=== PATIENT | male | born 1990 ===

== ENCOUNTER 2018-03-31 21:27 | Emergency (ER) | payer SELFPAY ==
--- NOTE | 2018-03-31 21:40 | UC ---
[facility] Dental HPI - HPI Summary HPI Summary: pain and swelling in right lower jaw has been worsening over the past 3 days - History of Current Complaint Chief Complaint: UCDentalProblem Stated Complaint: TOOTH ACHE Time Seen by Provider: 03/31/18 21:36 Hx Obtained From: Patient Onset/Duration: Sudden Onset, Lasting Days - 3 Severity: Moderate Aggravating Factor(s): Heat, Cold, Chewing Alleviating Factor(s): Nothing Related History: Previous Dental Care on Same Tooth, Swelling - Allergies/Home Medications Allergies/Adverse Reactions: Allergies Allergy/AdvReac Type Severity Reaction Status Date / Time No Known Allergies Allergy Verified 03/31/18 21:43 Home Medications: Home Medications Fenofibrate(NF) [Tricor(NF)] 160 mg PO DAILY 03/31/18 [History Confirmed ] PMH/Surg Hx/FS Hx/Imm Hx Previously Healthy: Yes - Surgical History Surgical History: Yes Surgery Procedure, Year, and Place: WISDOM TEETH - Family History Known Family History: Positive: Hypertension - Social History Occupation: Employed Full-time Lives: With Family Alcohol Use: None Substance Use Type: None Smoking Status (MU): Never Smoked Tobacco - Immunization History Most Recent Tetanus Shot: THINKS WITHIN 5 YEARS Review of Systems Constitutional: Negative Skin: Negative Eyes: Negative ENT: Dental Pain - second right lower molar Respiratory: Negative Cardiovascular: Negative Gastrointestinal: Negative Genitourinary: Negative Motor: Negative Neurovascular: Negative Musculoskeletal: Negative Neurological: Negative Psychological: Negative Is Patient Immunocompromised?: No All Other Systems Reviewed And Are Negative: Yes Physical Exam - Summary Physical Exam Summary: i-stop [id number] no rx reported Triage Information Reviewed: Yes Appearance: Well-Appearing, No Pain Distress, Well-Nourished Vital Signs Reviewed: Yes Eye Exam: Normal Eyes: Positive: Conjunctiva Clear ENT Exam: Normal ENT: Positive: Normal ENT inspection, Hearing grossly normal, Pharynx normal, Dental tenderness, Uvula midline. Negative: Nasal congestion, Tonsillar exudate , Trismus, Hoarse voice, Sinus tenderness Dental Exam: Normal Dental: Positive: Abscess @ - right lower jaw. Negative: Percussion Tenderness @, Gross Decay/Caries @, Dental Fracture @ Neck exam: Normal Neck: Positive: Supple, Nontender Respiratory Exam: Normal Respiratory: Positive: Chest non-tender, No respiratory distress, No accessory muscle use Cardiovascular Exam: Normal Cardiovascular: Positive: RRR, Pulses Normal, Brisk Capillary Refill Musculoskeletal Exam: Normal Musculoskeletal: Positive: Strength Intact, ROM Intact, No Edema Neurological Exam: Normal Neurological: Positive: Alert, Muscle Tone Normal Psychological Exam: Normal Skin Exam: Normal Dental Complaint Course/Dx - Course Course Of Treatment: pain med, amoxicillin, dental referal and pcp referal to follow blood pressure - Differential Dx/Diagnosis Provider Diagnoses: elevated blood pressure without diagnosis of hypertension, right lower jaw dental pain and abscess Discharge - Sign-Out/Discharge Documenting (check all that apply): Discharge/Admit/Transfer - Discharge Plan Condition: Stable Disposition: HOME Prescriptions: Amoxicillin PO (*) [Amoxicillin 500 MG CAP*] 500 mg PO TID #29 cap Hydrocodone/Acetaminophen [Hydrocodone-Acetamin 5-325 mg] 1 each PO QID PRN #12 tablet MDD 4 PRN Reason: pain Ibuprofen TAB* [Motrin TAB* 800 MG] 800 mg PO Q8H PRN #30 tab PRN Reason: pain Patient Education Materials: Dental Abscess (ED), Hypertension (ED), Toothache (ED) Referrals: Nicky Amezcua MD [Primary Care Provider] - 1 Week Additional Instructions: Follow with dentist ashu---dental provider list has been provided for you as well - Billing Disposition and Condition Condition: STABLE Disposition: Home
[2018-03-31 21:42] VITALS: BP 172/98
[2018-03-31] MEDS ORDERED: Amoxicillin PO (*) 500 MG CAP PO ONE (21:50)
[2018-03-31] MEDS ORDERED: HYDROcodone/ACETAMIN 5-325 MG* 1 TAB PO ONE (21:50)
== END 2018-03-31 22:05 | disposition home or self-care (01) ==
LOC: UCEAST 21:27
DX: K04.7 Periapical abscess without sinus (principal); R03.0 Elevated blood-pressure reading, without diagnosis of hypertension; Z82.49 Family history of ischemic heart disease and other diseases of the circulatory system
CPT/HCPCS: 99212; A9270-GY; G0463

== ENCOUNTER 2018-06-26 21:27 | Emergency (ER) | payer SELFPAY ==
[2018-06-26 22:09] VITALS: BP 178/115
[2018-06-26] MEDS ORDERED: Amoxicillin/Clavulanate TAB* 875 MG PO ONE (22:53)
--- NOTE | 2018-06-26 22:55 | UC ---
Dental HPI - HPI Summary HPI Summary: FILLING TOOTH #18 (LEFT LOWER SECOND MOLAR) FELL OUT ABOUT 10 MONTHS AGO. HAS HAD INCREASING PAIN FOR THE LAST 1 WEEK AND THINKS HIS FACE IS STARTING TO SWELL. NO FEVER. - History of Current Complaint Chief Complaint: UCDentalProblem Stated Complaint: TOOTH PAIN Time Seen by Provider: 06/26/18 22:20 Hx Obtained From: Patient Onset/Duration: Sudden Onset, Lasting Days, Still Present Severity: Moderate Pain Intensity: 5 Pain Scale Used: 0-10 Numeric Aggravating Factor(s): Chewing Related History: Previous Dental Care on Same Tooth - Allergies/Home Medications Allergies/Adverse Reactions: Allergies Allergy/AdvReac Type Severity Reaction Status Date / Time No Known Allergies Allergy Verified 06/26/18 22:09 PMH/Surg Hx/FS Hx/Imm Hx Cardiovascular History: Hypertension - Surgical History Surgical History: Yes Surgery Procedure, Year, and Place: WISDOM TEETH - Family History Known Family History: Positive: Hypertension - Social History Alcohol Use: None Substance Use Type: None Smoking Status (MU): Never Smoked Tobacco - Immunization History Most Recent Tetanus Shot: THINKS WITHIN 5 YEARS Review of Systems Constitutional: Negative ENT: Dental Pain Respiratory: Negative Cardiovascular: Negative Gastrointestinal: Negative All Other Systems Reviewed And Are Negative: Yes Physical Exam Triage Information Reviewed: Yes Appearance: Well-Appearing, No Pain Distress, Well-Nourished Vital Signs: Initial Vital Signs Temp 98.3 F 06/26/18 22:07 Pulse 80 06/26/18 22:07 Resp 12 06/26/18 22:07 BP 178/115 06/26/18 22:07 Pulse Ox 100 06/26/18 22:07 Vital Signs Reviewed: Yes Eyes: Positive: Conjunctiva Clear ENT: Positive: Pharynx normal Dental: Positive: Percussion Tenderness @ - #18, Gross Decay/Caries @ - #18 Neck: Positive: Supple, Nontender, No Lymphadenopathy Respiratory: Positive: No respiratory distress, No accessory muscle use Cardiovascular: Positive: Pulses Normal Abdomen Description: Positive: Soft Musculoskeletal: Positive: No Edema Neurological: Positive: Alert Psychological: Positive: Age Appropriate Behavior Skin: Negative: rashes Dental Complaint Course/Dx - Course Course Of Treatment: WILL COVER FOR DENTAL INFECTION WITH AUGMENTIN. PERIDEX MOUTH RINSE. PATIENT STATES HIS BLOOD PRESSURE DOES RUN HIGH AND HAS BEEN THIS HIGH IN THE PAST. HE HAS BEEN ON BLOOD PRESSURE MEDICINES IN THE PAST AND DOES NOT LIKE HOW THEY MAKE HIM FEEL. I HAVE ADVISED HIM THAT HIS BLOOD PRESSURE IS DANGEROUSLY ELEVATED AND THAT HE NEEDS TO FOLLOW-UP WITH HIS PCP SHALA FOR FURTHER EVALUATION AND TO DISCUSS TREATMENT OPTIONS. - Differential Dx/Diagnosis Provider Diagnoses: TOOTHACHE #18 Discharge - Sign-Out/Discharge Documenting (check all that apply): Patient Departure All imaging exams completed and their final reports reviewed: No Studies - Discharge Plan Condition: Stable Disposition: HOME Prescriptions: Amoxicillin/Clavulanate TAB* [Augmentin TAB 875*] 875 mg PO BID #19 tab Chlorhexidine MW 0.12% 473ML* [Peridex Mouth Wash 0.12%*] 15 ml SWISH SPIT BID # 1 bottle Patient Education Materials: Toothache (ED) Referrals: Nicky Amezcua MD [Primary Care Provider] - Additional Instructions: TAKE THE ANTIBIOTICS FOR THE FULL COURSE. RINSE YOUR MOUTH WITH WATER AFTER EATING OR DRINKING ANYTHING. ANTISEPTIC MOUTH RINSE TWICE DAILY. OTC MEDS NEEDED FOR DISCOMFORT. FOLLOW-UP WITH YOUR DENTIST SHALA. IBUPROFEN MAX DOSE: 600MG (3 TABS) EVERY 6 HRS OR 800MG (4 TABS) EVERY 8 HRS OR NAPROXEN MAX DOSE: 440MG (2 TABS) EVERY 12 HRS TYLENOL MAX DOSE: 1000MG (2 EXTRA STRENGTH TABS) EVERY 8 HRS OR 650MG (2 REGULAR TABS) EVERY 6 HRS YOUR BLOOD PRESSURE WAS ELEVATED TODAY. MONITOR AND FOLLOW-UP WITH YOUR PCP WITHIN 4 WEEKS. - Billing Disposition and Condition Condition: STABLE Disposition: Home
== END 2018-06-26 23:00 | disposition home or self-care (01) ==
LOC: UCEAST 21:27
DX: K08.89 Other specified disorders of teeth and supporting structures (principal); I10 Essential (primary) hypertension
CPT/HCPCS: 99212; A9270-GY; G0463